=== PATIENT | female | born 1940 | race Caucasian/White ===

== ENCOUNTER → 2016-12-05 | Outpatient (CLI) | payer OTHER ==
[2016-12-05 13:11] LABS: BASO % 0.6 %; BASO ABS # 0.03 K/uL (0-0.2); COMPLETE YES; EOS % 3.8 %; HEMATOCRIT 39.5 % (37-47); IG% 0.2 %; LYMPH % 30.4 %; LYMPH ABS # 1.46 K/uL (1.2-3.4); MEAN CELL VOLUME 89.4 fL (80-100); MEAN CORPUSCULAR HEMOGLOBIN 29.6 pg (25-34); MEAN CORPUSCULAR HGB CONC 33.2 g/dl (32-36); MEAN PLATELET VOLUME 9.1 fL (7.4-10.4); MONO % 8.1 %; NEUT % 56.9 %; PLATELET COUNT 205 K/uL (130-400); RED BLOOD COUNT 4.42 M/uL (4.2-5.4)
[2016-12-05 13:47] LABS: BLOOD UREA NITROGEN 16 mg/dl (7-18); BUN/CREATININE RATIO 17.7 (10-20); CARBON DIOXIDE 27 mmol/L (21-32); CHLORIDE 109 mmol/L (98-107); CREATININE 0.91 mg/dl (0.60-1.20); GLUCOSE 88 mg/dl (70-99); SODIUM 144 mmol/L (136-145)
[2016-12-05 13:58] LABS: ALB/GLOB RATIO 1.4 (0.9-2); ALKALINE PHOSPHATASE 44 U/L (45-117); ALT/SGPT 22 U/L (12-78); AST/SGOT 16 U/L (15-37); CHOLESTEROL 162 mg/dl (0-200); HDL CHOLESTEROL 81 mg/dl; LDL CHOLESTEROL CALCULATED 62 mg/dl; TRIGLYCERIDES 96 mg/dl (0-150); VERY LOW DENSITY LIPOPROT CALC 19 mg/dl
== END | disposition home or self-care (01) ==
LOC: C.LABMFLN 08:15
PROVIDERS: ATTEND Family Medicine
DX: I35.0 Nonrheumatic aortic (valve) stenosis (principal); E78.5 Hyperlipidemia, unspecified; E03.9 Hypothyroidism, unspecified

== ENCOUNTER → 2017-03-04 | Outpatient (CLI) | payer OTHER ==
--- NOTE | 2017-03-04 16:06 | MAMMOGRAPHY REPORT ---
BILATERAL DIGITAL SCREENING MAMMOGRAM WITH CAD: 03/04/2017 CLINICAL HISTORY: Routine screening. Patient has no complaints. TECHNIQUE: Bilateral CC and MLO views were obtained. Current study was also evaluated with a Comput er Aided Detection (CAD) system. COMPARISON: Comparison is made to exams dated: 02/29/2016 mammogram, 02/10/2015 mammogram, 02/08/2014 m ammogram, 02/27/2013 ultrasound biopsy, 02/16/2013 ultrasound, and 02/16/2013 mammogram - [facility]. BREAST COMPOSITION: The tissue of both breasts is heterogeneously dense, which may obscure small ma sses. FINDINGS: The parenchymal pattern is similar to prior mammograms. There are scattered benign round calcifications and stable groupings of benign-appearing punctate microcalcifications. Minimal vasc ular calcification in the breasts. A stable ribbon shaped metallic biopsy marker in the left breast . No developing mass, architectural distortion or cluster of suspicious microcalcifications is seen . IMPRESSION: ACR BI-RADS CATEGORY 2: BENIGN There is no mammographic evidence of malignancy. A 1 year screening mammogram is recommended. The p atient will receive written notification of the results. Approximately 10% of breast cancers are not detected with mammography. A negative mammographic repor t should not delay biopsy if a clinically suggestive mass is present. Carolyn Ramos M.D. ay/:03/04/2017 15:13:47 Federal Air Marshal: Wolf Herman M, [facility] letter sent: Normal 1/2 BI-RADS Code: ACR BI-RADS Category 2: Benign
== END | disposition home or self-care (01) ==
LOC: C.MAMM 13:01
PROVIDERS: ATTEND Family Medicine
DX: Z12.31 Encounter for screening mammogram for malignant neoplasm of breast (principal)

== ENCOUNTER → 2017-12-03 | Outpatient (CLI) | payer OTHER ==
[2017-12-03 12:44] LABS: BASO % 0.6 %; BASO ABS # 0.03 K/uL (0-0.2); EOS % 5.2 %; EOS ABS # 0.25 K/uL (0-0.5); HEMATOCRIT 36.5 % (37-47); HEMOGLOBIN 11.9 g/dL (12.0-16.0); IG# 0.02 K/uL (0.00-0.02); LYMPH % 33.2 %; LYMPH ABS # 1.61 K/uL (1.2-3.4); MEAN CELL VOLUME 90.1 fL (80-100); MEAN CORPUSCULAR HEMOGLOBIN 29.4 pg (25-34); MEAN CORPUSCULAR HGB CONC 32.6 g/dl (32-36); MEAN PLATELET VOLUME 9.5 fL (7.4-10.4); MONO ABS # 0.34 K/uL (0.11-0.59); NEUT % 53.6 %; PLATELET COUNT 186 K/uL (130-400); RED CELL DISTRIBUTION WIDTH CV 13.8 % (11.5-14.5); RED CELL DISTRIBUTION WIDTH SD 45.6 fL (36.4-46.3); WHITE BLOOD COUNT 4.85 K/uL (4.8-10.8)
[2017-12-03 14:49] LABS: ALBUMIN 3.5 gm/dl (3.4-5.0); ALT/SGPT 31 U/L (12-78); AST/SGOT 18 U/L (15-37); BLOOD UREA NITROGEN 21 mg/dl (7-18); CALCIUM 8.6 mg/dl (8.5-10.1); CARBON DIOXIDE 27 mmol/L (21-32); CHOLESTEROL 165 mg/dl (0-200); CREATININE 0.82 mg/dl (0.60-1.20); GLUCOSE 88 mg/dl (70-99); SODIUM 139 mmol/L (136-145)
[2017-12-03 14:57] LABS: ALKALINE PHOSPHATASE 51 U/L (45-117); LDL CHOLESTEROL CALCULATED 82 mg/dl; TOTAL PROTEIN 6.4 gm/dl (6.4-8.2)
== END | disposition home or self-care (01) ==
LOC: C.LABMFLN 09:41
PROVIDERS: ATTEND Family Medicine
DX: I35.0 Nonrheumatic aortic (valve) stenosis (principal); E78.5 Hyperlipidemia, unspecified; E03.9 Hypothyroidism, unspecified; G47.62 Sleep related leg cramps

== ENCOUNTER → 2018-03-06 | Outpatient (CLI) | payer OTHER ==
--- NOTE | 2018-03-07 07:47 | MAMMOGRAPHY REPORT ---
BILATERAL DIGITAL SCREENING MAMMOGRAM TOMOSYNTHESIS WITH CAD: 03/06/2018 CLINICAL HISTORY: Routine screening. TECHNIQUE: Breast tomosynthesis in addition to standard 2D mammography was performed. Current study was also evaluated with a Computer Aided Detection (CAD) system. COMPARISON: Comparison is made to exams dated: 03/04/2017 mammogram, 02/29/2016 mammogram, 02/10/2015 stephania mogram, 02/08/2014 mammogram, 02/04/2012 mammogram, and 02/01/2011 mammogram - [facility] BREAST COMPOSITION: The tissue of both breasts is heterogeneously dense, which may obscure small mas ses. FINDINGS: There is possible architectural distortion seen within the right lateral breast on the CC t omosynthesis images (slice 35), possibly projecting in the superior breast on the MLO view. Recommen d spot compression tomosynthesis views and possible breast ultrasound for further evaluation. The remainder of both breasts are stable compared to prior exams, without suspicious masses, calcific ations, or areas of architectural distortion noted. Scattered bilateral benign-appearing calcificati ons are not significantly changed. A biopsy clip is again noted within the left 3:00 breast. IMPRESSION: ACR BI-RADS CATEGORY 0: INCOMPLETE EVALUATION: NEED ADDITIONAL IMAGING EVALUATION Possible right breast architectural distortion, for which additional imaging evaluation is recommende d. The patient will be called to schedule an appointment. Approximately 10% of breast cancers are not detected with mammography. A negative mammographic report should not delay biopsy if a clinically suggestive mass is present. Iza Stearns M.D. ah/:03/06/2018 14:58:05 Reinsurance Accountant: Elijah PAUL(Wolf)(M), [facility] letter sent: Addl Imaging 0 BI-RADS Code: ACR BI-RADS Category 0: Incomplete Evaluation: Need Additional Imaging Evaluation
== END | disposition home or self-care (01) ==
LOC: C.MAMM 10:15
PROVIDERS: ATTEND Family Medicine
DX: Z12.31 Encounter for screening mammogram for malignant neoplasm of breast (principal); R92.8 Other abnormal and inconclusive findings on diagnostic imaging of breast

== ENCOUNTER → 2018-03-10 | Outpatient (CLI) | payer OTHER | END | disposition home or self-care (01) | LOC: C.LABMFLN 10:09 | PROVIDERS: ATTEND Family Medicine | DX: E03.9 Hypothyroidism, unspecified (principal) ==

== ENCOUNTER → 2018-06-06 | Day surgery (SDC) | payer OTHER ==
[2018-05-28 13:44] VITALS: Ht 170.2 cm; Wt 75.0 kg
[~2018-06-06] VITALS: Ht 170.2 cm; Wt 75.0 kg
[~2018-06-06] MED LIST: ASPI81TA28 PO; ATROPINE SULFATE 0.1 MG/ML 5ML SYR IV PRN; BUPIVACAINE/EPINEPHRINE 0.5% MPF 1:200,000 30 ML VIAL ONE; CALC500C70 PO; CEFAZOLIN 2000MG IV PUSH 15 ML IV SCH; COEN400C5 PO; CYAN500T13 PO; DEXAMETHASONE SOD INJ 4 MG/ML VIAL ONE; EpHEDrine SULFATE INJ 50 MG/ML AMP IV PRN; FENTANYL CITRATE INJ 50 MCG/1 ML 2 ML VIAL ONE; HYDR-5688 PO; HYDROCODONE/ACETAMIN 5/325MG TAB PO PRN; LACTATED RINGER'S 1000ML 1,000 ML IV SCH; LEVO50TA6 PO; LIDOCAINE HCL 2% 2 ML VIAL (20MG/ML) ONE; LIDOCAINE/EPINEPHRINE 1% 20 ML VIAL ONE; MIDAZOLAM HCL 1 MG/ML 2ML VIAL ONE; MULT-506 PO; MoRPHine SULFATE 4 MG/ML 1 ML CARP\\VIAL IV PRN; ONDANSETRON INJ 2 MG/ML 2 ML VIAL IV PRN; ONDANSETRON INJ 2 MG/ML 2 ML VIAL ONE; PROPOFOL IV EMULSION 10 MG/ML 20 ML VIAL ONE; SIMV20TA2 PO
--- NOTE | 2018-06-06 07:53 | Discharge Instructions-SurgCtr ---
Discharge Instructions Date of Service Jun 06, 2018. Visit Reason for Visit: Right Breast Mass Discharge Discharge Diagnosis / Problem: breast mass Discharge Goals Goal(s): Diagnostic testing, Therapeutic intervention Activity Recommendations Activity Limitations: as noted below Lifting Limitations: gradually increase as tolerated Shower/Bathe: tomorrow Anesthesia . Post Anesthesia Instructions: If you have had General Anesthesia or IV Sedation: * Do not drive today. * Resume driving when surgeon permits. * Do not make important decisions or sign legal documents today. * Call surgeon for: 1. Temperature elevations greater than 101 degrees F. 2. Uncontrollable pain. 3. Excessive bleeding. 4. Persistent nausea and vomiting. 5. Medication intolerance (nausea, vomiting or rash). * For nausea and vomiting use only clear liquids such as: tea, soda, bouillon until nausea subsides, then gradually increase diet as tolerated. * If you have any concerns or questions, call your surgeon's office. If physician is unavailable and it is an emergency, call 911 or go to the nearest emergency room. . Instructions / Follow-Up Instructions / Follow-Up call [phone] with any concerns or questions Diet Recommendations Home Diet: resume previous diet Pending Studies Studies pending at discharge: yes List of pending studies: pathology report Medical Emergencies . Who to Call and When: Medical Emergencies: If at any time you feel your situation is an emergency, please call 911 immediately. . Non-Emergent Contact Non-Emergency issues call your: Primary Care Provider, Surgeon Call Non-Emergent contact if: temperature is above 101, wound has increased drainage, wound has increased redness, wound has increased pain . . "Provider Documentation" section prepared by Paul Vanegas. .
--- NOTE | 2018-06-06 09:57 | History & Physical Bridge Note ---
H&P Re-Evaluation Bridge Note: I have examined the patient, reviewed the History & Physical and in the interval since the performance of the History & Physical I have noted the following changes of clinical significance: No changes noted
--- NOTE | 2018-06-06 10:13 | History and Physical ---
History & Physical Date Jun 06, 2018. History of Present Illness The patient is a 77 year old female with complaints of abnormal mammogram. bx was negative however the breast radiologists are concerned there is a discordance between what they are seeing on imaging vs path report. they rec excisional bx. pt asymptomatic. Allergies Coded Allergies: No Known Allergies (Unverified , 06/06/18) Home Medications Scheduled Aspirin (Aspirin Ec), 81 MG PO HS Calcium/Vitamin D (Os-Wilmer 500 Plus D), 1 TAB PO DAILY Coenzyme Q10 (Ubidecarenone) (Coq10), 1 TAB PO QAM Cyanocobalamin (Vitamin B12 500MCG), 500 MCG PO DAILY Levothyroxine Sodium (Levothyroxine Sodium), 1 TAB PO DAILY Multivitamin (Multivitamin), 1 TAB PO DAILY Simvastatin (Zocor), 20 MG PO QPM Scheduled PRN Hydrocodone/Acetaminophen 5MG/325MG ([place] 5MG/325MG), 1 TABLET PO Q4H PRN for Pain Physical Examination Skin: warm/dry, no rash Eyes: EOMI, sclerae normal Head: atraumatic Neck: no adenopathy, trachea midline Respiratory/Chest: no respiratory distress Cardiovascular: regular rate, rhythm Abdomen / GI: non tender Extremities: normal inspection Neurologic/Psych: alert, oriented x 3 Diagnosis abnormal mammogram Plan of Treatment excisional bx of right breast with needle loc
--- NOTE | 2018-06-06 10:56 | [facility] Post Operative Brief Note ---
Immediate Operative Summary Operative Date Jun 06, 2018. Pre-Operative Diagnosis Right Breast Mass Post-Operative Diagnosis Same Procedure(s) Performed Right Breast Lumpectomy With Needle Localization Surgeon Dr. Vanegas Die Set Up Worker Surgeon(s) Ivan Alvares PA-C Estimated Blood Loss 5ml Findings Consistent with Post-Op Diagnosis Specimens A: Right Breast Lumpectomy (2Short stitches superior, 1 long stitch posterior, wire lateral) Out of Body at 1040 Sent To [facility] at 1044 Anesthesia Type General Complication(s) none
--- NOTE | 2018-06-06 11:10 | [facility] Operative Report ---
Operative Report Operative Date Jun 06, 2018. Pre-Operative Diagnosis Right Breast Mass Post-Operative Diagnosis Same Procedure(s) Performed Right Breast Lumpectomy With Needle Localization Surgeon Dr. Vanegas Arboriculture Instructor Surgeon(s) Ivan Alvares PA-C Estimated Blood Loss 5ml Specimens A: Right Breast Lumpectomy (2Short stitches superior, 1 long stitch posterior, wire lateral) Out of Body at 1040 Sent To PS[facility] at 1044 Anesthesia Type General Complication(s) none Description of Procedure Prior to coming to the operating room the patient had been to the breast bremen where she had her right breast lesion needle localized. She was then brought to the operating room placed in supine position with the right arm extended. After successful placement of the laryngeal mask airway the right breast and chest wall were sterilely prepped and draped in usual fashion. Prior to prepping I had cut the guidewire down to within a centimeter of the skin. I then made an incision next to the guidewire with a 15 blade scalpel and carried this down through the soft tissues electrocautery. I was then able to deliver the guidewire into the wound itself. I made skin flaps in 360. I then used traction countertraction and electrocautery to come around the guidewire in 360 degrees. once we were posterior to the clip and guidewire itself I was then able to come underneath the guidewire and remove it in one piece. It was marked such that the guidewire was lateral 2 short sutures were superior and one long suture was posterior. It was x-rayed and verified that we did in fact have the clip in the specimen. Next I thoroughly irrigated the wound. Any small bleeding points were controlled using electrocautery. The wound was closed in multiple layers using 3-0 Vicryl for deeper layers and 4-0 Monocryl for skin. Marcaine was injected around the incision for postoperative analgesia. Benzoin and Steri-Strips were used as dressings. My physician management assistant was present for the entire case. He helped prep the patient. He helped with retraction throughout the case for exposure. He also helped with wound closure and dressing placement at the end of the case. I attest to the content of the Intraoperative Record and any orders documented therein. Any exceptions are noted below.
[2018-06-06 11:59] VITALS: TEMP 36.3
[2018-06-06 12:39] VITALS: BP 124/77; PULSE 63; O2SAT 96
--- NOTE | 2018-06-06 12:45 | Anesthesia Progress Nt - [facility] ---
Anesthesia Post Op Note Date & Time Jun 06, 2018 at 12:45 Vital Signs Pain Intensity: 2 Vital Signs Past 12 Hours Date Time Temp Pulse Resp B/P (MAP) Pulse Ox O2 Delivery O2 Flow Rate FiO2 06/06/18 12:39 63 16 124/77 (93) 96 Room Air 06/06/18 11:59 36.3 59 16 125/79 (94) 98 Room Air 06/06/18 11:49 63 8 06/06/18 11:49 63 8 96 06/06/18 11:48 58 9 06/06/18 11:48 58 9 95 06/06/18 11:47 58 11 06/06/18 11:47 59 11 96 06/06/18 11:46 36.3 58 20 125/71 96 Room Air 06/06/18 11:46 125/71 06/06/18 11:42 63 15 92 06/06/18 11:42 64 15 06/06/18 11:41 59 10 06/06/18 11:41 59 10 95 06/06/18 11:40 120/71 06/06/18 11:36 61 11 06/06/18 11:36 61 11 98 06/06/18 11:35 107/68 06/06/18 11:31 62 9 06/06/18 11:31 62 9 100 06/06/18 11:30 109/68 06/06/18 11:26 62 10 100 06/06/18 11:26 62 10 06/06/18 11:25 109/67 06/06/18 11:23 64 11 100 06/06/18 11:23 64 11 06/06/18 11:20 110/64 06/06/18 11:18 68 13 99 06/06/18 11:18 67 13 06/06/18 11:17 67 11 06/06/18 11:17 67 11 100 06/06/18 11:15 104/60 06/06/18 11:12 68 11 100 06/06/18 11:12 69 11 06/06/18 11:11 69 11 06/06/18 11:11 70 11 100 06/06/18 11:10 86/54 06/06/18 11:08 69 12 06/06/18 11:08 69 12 100 06/06/18 11:05 105/67 06/06/18 11:04 108/63 06/06/18 11:03 36.1 74 12 108/63 96 Mask 8 06/06/18 11:03 73 95 06/06/18 11:03 73 06/06/18 07:56 37.0 64 18 121/74 (90) 97 Room Air Notes Mental Status: alert / awake / arousable, participated in evaluation Pt Amnestic to Procedure: Yes Nausea / Vomiting: adequately controlled Pain: adequately controlled Airway Patency, RR, SpO2: stable & adequate BP & HR: stable & adequate Hydration State: stable & adequate Anesthetic Complications: no major complications apparent
--- NOTE | 2018-06-06 15:28 | MAMMOGRAPHY REPORT ---
SPECIMEN RIGHT BREAST: 06/06/2018 CLINICAL HISTORY: Status post right breast surgical excision. COMPARISON: Comparison is made to exams dated: 03/27/2018 stereotactic biopsy, 03/19/2018 mammogram, ultrasound, 03/04/2017 mammogram, 02/29/2016 mammogram, and 02/10/2015 mammogram - [facility]. Findings: A radiograph was performed of the right breast surgical specimen. The localized biopsy cli p and intact needle localization wire are present within the specimen. Results were discussed with Brittany Vanegas over the telephone. IMPRESSION: SPECIMEN The imaged specimen contains the preoperatively-localized biopsy clip. Iza Stearns M.D. ah/:06/06/2018 10:56:29 Biscuit Factory Worker: Kassy Dobson, [facility]
--- NOTE | 2018-06-06 15:28 | MAMMOGRAPHY REPORT ---
NEEDLE LOCALIZATION RIGHT BREAST: 06/06/2018 CLINICAL HISTORY: Architectural distortion in the right upper outer quadrant. The patient underwent u ltrasound-guided core needle biopsy which yielded benign pathology, however, the pathology results we re felt to be discordant and surgical excision was recommended. PROCEDURE DESCRIPTION: With imaging guidance, aseptic technique, and 1% lidocaine as the local anesth etic, the focal architectural distortion in the right upper outer quadrant with an adjacent biopsy ma rker clip was localized with a 5 cm Long 2 needle. The path of approach was lateral. The archite ctural distortion and associated biopsy clip are located along the distal portion of the wire just pr oximal to the kale. The needle was removed. The patient tolerated the procedure without complication . COMPARISON: Comparison is made to exams dated: 03/27/2018 stereotactic biopsy, 03/27/2018 mammogram, mammogram, 03/19/2018 ultrasound, 03/06/2018 mammogram, and 02/29/2016 mammogram - [facility]. IMPRESSION: NEEDLE LOCALIZATION Mammographic guided needle localization of architectural distortion and associated biopsy clip in the right upper outer quadrant. Iza Stearns M.D. ah/:06/06/2018 08:33:03 Reinforcement Maker: RT Rubio(R)(M), [facility]
== END | disposition home or self-care (01) ==
LOC: X.SURG 07:34
PROVIDERS: ATTEND Surgery
DX: D05.01 Lobular carcinoma in situ of right breast (principal); N63.11 Unspecified lump in the right breast, upper outer quadrant; R92.2 Inconclusive mammogram; Z79.82 Long term (current) use of aspirin; I10 Essential (primary) hypertension; E78.5 Hyperlipidemia, unspecified; I73.9 Peripheral vascular disease, unspecified; M19.90 Unspecified osteoarthritis, unspecified site; E03.9 Hypothyroidism, unspecified

== ENCOUNTER 2023-11-12 11:54 | Inpatient (IN) ==
[2023-11-12] MEDS ORDERED: LIDOCAINE 1% LOCAL 20 ML VIAL ONE (12:11)
[2023-11-12] MEDS ORDERED: WATER, STERILE FOR INJ 10 ML VIAL ONE (12:11)
[2023-11-12] MEDS ORDERED: VANCOMYCIN HCL 1000MG/20ML VIAL ONE (12:11)
[2023-11-12] MEDS ORDERED: fentaNYL citrate PF 100 MCG/2 ML VIAL ONE (12:53)
[2023-11-12] MEDS ORDERED: MIDAZOLAM HCL 5 MG/ML 1 ML VIAL ONE (12:53)
--- NOTE | 2023-11-12 13:00 | History & Physical Bridge Note ---
Date of Service November 12, 2023 History & Physical Bridge Note I have examined the patient, reviewed the History & Physical and in the interval since the performance of the History & Physical I have noted the following changes of clinical significance: no changes noted. I reviewed the indications, procedure, risks and alternatives with the patient, and answered all questions. Patient understands and agrees to the procedure. Consent obtained. I also reviewed the risks and use of sedation, patient understands and consent obtained.
--- NOTE | 2023-11-12 13:04 | Pre Anesthesia Assessment ---
Date of Service November 12, 2023 Pre Sedation Assessment Vital Signs Temp Pulse Resp BP Pulse Ox O2 Del Method 11/12/23 12:11 36.6 C 76 20 165/73 H 99 Room Air Cardiovascular RRR, no murmur, no edema Respiratory normal respiratory effort, lungs clear to auscultation Pre-Sedation Airway Assessment Smoking Status: Never smoker Hx Sleep Apnea: No Short, Thick Neck: No Thyromental Distance: > or= 3.5 Finger Breadths Oral Cavity: + WNL Mallampati Class: I ASA: ASA1 NPO Status Date of Last Intake of Fluids: 11/11/23 Time of Last Intake of Fluids: 20:00 Date of Last Intake of Solid Food: 11/11/23 Time of Last Intake of Solid Foods: 20:00 Procedure Planning Contraindications for Sedation: none Current Medications Reviewed: Yes Notes The planned sedation has been discussed with the patient. Informed Consent was obtained. I have identified the patient, determined the appropriateness of sedation and have assessed the patient immediately prior to the procedure. All medicine(s) and interventions are by my order.
--- NOTE | 2023-11-12 13:06 | History & Physical Report ---
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 We will have to implant a standard dual-chamber pacemaker to be confident to maintain AV synchrony. History of Present Illness Chief Complaint: Pacemaker syndrome Primary Care Provider: Duy Juarez MD This is an 82-year-old woman with a history of hypothyroidism, carotid artery disease, breast cancer hyperlipidemia and severe aortic stenosis for which she required TAVR December 20, 2022. Preoperative cardiac catheterization showed no [place] coronary artery disease. The TAVR procedure was complicated by AV block and she had a Micra AV pacemaker implanted on December 21, 2022. There is an indication that she may have had sinus node dysfunction as well. She was seen here in follow-up on February 06, 2022 and she was having symptoms of exercise- induced lightheadedness as well as fatigue and tiredness. Pacemaker evaluation at that time indicated poor atrial tracking, the device was reprogrammed. She did have an echocardiogram done at [facility] on February 04, 2023 and normal left ventricular size and systolic function with no regional wall motion abnormalities is noted. The ejection fraction is estimated at 60 to 65% with moderate left ventricular hypertrophy. The bioprosthetic aortic valve appeared to be working well. Initially after valve replacement and pacemaker implantation she has been having a lot of difficulty with intermittent lightheadedness, this was mostly with exertion or sometimes with standing up and occurs frequently throughout the day. She also noted that she could not walk up hills without getting extremely short of breath and this evidently is also worse than before the valve replacement. On evaluation of her pacemaker it was not appropriately tracking atrial activity so adjustments were made s to those settings March 13, 2023. These changes were quite helpful initially and for short time it significantly improved her exercise ability however she has developed recurrence of her prior symptoms. She describes dyspnea on exertion walking up stairs, chest heaviness with exertion as well as intermittent dizziness. She cannot walk up hills that she could before and her has noticed that as well. She does not have orthopnea, PND or peripheral edema. I did have her do a treadmill stress test in the office on September 11, 2023 as well as an echocardiogram to evaluate left ventricular function. An echocardiogram done September 11, 2023 shows normal left ventricular systolic function with mild concentric left ventricular hypertrophy and ejection fraction of 60 to 65%. The prosthetic aortic valve is functioning well with a normal gradient. The stress test on September 11, 2023 was quite abnormal in that atrial tracking with exercise was poor therefore her heart rate response was poor. We did make attempts to adjust her pacemaker to improve tracking but we were unsuccessful in allowing it to consistently track. This device is also limited in its tracking rate to 115 bpm, however she never reached that rate. Her symptoms based on testing in the office today therefore appear to be related to poor heart rate due to poor tracking performance not intrinsic cardiac problems, despite the wide paced complex. We had made some adjustments to her pacemaker in hopes that she would feel better. She returns now not feeling much different. She still has trouble doing what she would consider normal activities (even climbing one flight of steps) and her notes that she cannot keep up with him even on a slow walk. She is not satisfied with how this impacts her lifestyle. Otherwise she is doing well and is tolerating her medications well. Allergies Allergy/AdvReac Type Severity Reaction Status Date / Time amoxicillin AdvReac Unknown Nausea Verified 11/12/23 12:27 Home Medications Medication Instructions Recorded Confirmed Type calcium carbonate 600 mg-vitamin 1 tab PO QAM 06/23/19 11/12/23 History D3 10 mcg (400 unit) tablet cyanocobalamin (vitamin B-12) 500 500 mcg PO QAM 06/23/19 11/12/23 History mcg tablet Lactobacillus rhamnosus GG 15 1 cap PO HS 07/29/19 11/12/23 History billion cell sprinkle capsule aspirin 81 mg tablet,delayed 81 mg PO QPM 07/29/19 11/12/23 History release multivitamin 1 tab PO QAM 08/31/20 11/12/23 History coenzyme Q10 200 mg capsule 200 mg PO DAILY 10/16/22 11/12/23 History pantoprazole 20 mg tablet,delayed 20 mg PO DAILY #90 tabs 12/29/22 11/12/23 Rx release pravastatin 20 mg tablet 20 mg PO HS #90 tabs 05/06/23 11/12/23 Rx levothyroxine 75 mcg tablet 75 mcg PO QAM #90 tabs 05/27/23 11/12/23 Rx (Synthroid) azithromycin 250 mg tablet 500 mg (2 x 250 mg) PO ONCE #2 tabs 05/31/23 11/12/23 Rx Past Med/Surg History Medical History (Updated 10/08/23 @ 16:08 by Osmar Elaine MD) Osteoporosis Hx of cardiac pacemaker medtronic Scoliosis Hearing deficit Exertional shortness of breath Allergic rhinitis Aortic stenosis Arteriosclerosis of both carotid arteries Breast cancer LVH (left ventricular hypertrophy) Memory loss Osteopenia Osteoarthritis Diverticular disease Hypothyroidism Hyperlipidemia Surgical History Hx of aortic valve replacement History of left heart catheterization 11/06/22 PSH S/P epidural steroid injection (~04/07/20) History of partial mastectomy of right breast History of inguinal hernia repair Hx laparoscopic cholecystectomy (07/30/19) Laparoscopic Cholecystectomy Dr. Vanegas 07/30/19 Hx of umbilical hernia repair Hx of breast biopsy Hx of tonsillectomy Hx of appendectomy Hx of colonoscopy 10/14/2020 History of lumpectomy of right breast May 2018 History of bilateral tubal ligation History of tooth extraction Family History Mother Coronary heart disease Hypertension Father Coronary heart disease Lung cancer Hypertension Sister Cancer Other No family history of adverse response to anesthesia No significant family history Social History Smoking Status: Never smoker Second Hand Exposure: Yes (parents smoked); Do You Dip or Chew Tobacco: No; Hx Alcohol Use: Yes Alcohol type: wine Hx Substance Use: No Preferred Language: Nepali Communication Ability: Effective Communication Ability Comment: BILAT AIDES-PLEASE ADDRESS PT IN FRONT FOR HER TO SEE FACE Visual Impairment: No Limitations Shade Classifier Required: No Beliefs That Will Affect Care: None Current Living Situation: Spouse Current Living Situation Comment: [employer] Other Information That Helps Us Care for You: No Feels Safe at Home: Yes Safety Concerns: Feels Safe At This Time Seatbelt Use: always Assistive Devices: Glasses Physical Exam Physical Exam: Constitutional: Alert, cooperative and in no distress. HEENT: Unremarkable Neck: No jugular venous distention, carotid pulses are normal and equal bilaterally without bruits. Pulmonary: Clear to auscultation bilaterally. Cardiac: Regular rhythm with a grade 2/6 crescendo decrescendo murmur at the base, no gallop or rub. Good prosthetic valve sounds. Abdomen: Soft, nontender with normal bowel sounds. Extremities: No edema. Distal pulses intact. Neurologic: No focal findings. Gait is steady. Skin: No rash, ecchymoses or petechiae. Results & Data Results & Data Vital Signs (Past 12 Hours) Vital Signs Temp Pulse Resp BP Pulse Ox O2 Del Method 11/12/23 12:11 36.6 C 76 20 165/73 H 99 Room Air Laboratory Results Intake and Output 11/11/23 11/12/23 11/12/23 22:59 06:59 14:59 Other: Weight 72.3 kg Weight Measurement Method Standing Scale Patient Weight 11/13/23 06:59 Weight 72.3 kg PG Care Time/CCT Total # of Minutes Spent Total Time Spent with Patient: Total time spent is greater than 50% in coordination of care (as documented) at patient's floor/unit and/or counseling patient: Coding Level of Care Code None Diagnoses Pacemaker syndrome I97.190
--- NOTE | 2023-11-12 15:26 | Electrophysiology Report ---
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 The left prepectoral region was anesthetized with 1% lidocaine local anesthetic and left axillary venipuncture was performed by percutaneous technique and a guidewire placed through the left subclavian vein into the superior vena cava. The area was further infiltrated with 1% lidocaine local anesthetic and a 5 cm incision was made parallel to the left clavicle and 2 cm below it and carried down to the anterior pectoralis fascia. A pacemaker pocket was formed by blunt dissection anterior to the pectoralis fascia and a vancomycin soaked sponge was placed in the pocket. A 9 Ma[place] Medtronic lead introducer was placed over the guidewire into the left subclavian vein, the dilator and guidewire were removed and a bipolar active fixation steroid tipped atrial lead was advanced through the introducer into the superior vena cava. A guidewire was placed through the introducer and the introducer was stripped from the lead and guidewire. A 7 Ma[place] Medtronic lead introducer was placed over the guidewire into the left subclavian vein, the dilator and guidewire were removed and a left bundle branch sheath was advanced through the introducer over the guidewire into the right ventricle. Multiple attempts were made to place a left bundle branch employment coordinator through the sheath into the septum, taking care to avoid the Micra pacemaker, however adequate fixation and adequate thresholds could not be obtained by this manner. Therefore this system was removed and a bipolar active fixation steroid tipped ventricular lead was advanced through the introducer into the superior vena cava and the introducer was stripped from the lead and guidewire. Using a curved stylette the ventricular lead was advanced through the right ventricular outflow tract into the pulmonary artery and then using a straight stylette was positioned in the right ventricular apex. The screw was extended fixing the lead in position. Pacing and sensing thresholds were evaluated in bipolar configuration and are recorded on the implant data sheet. Using a curved stylette the atrial lead was positioned in the region of the atrial appendage and the screw extended fixing the lead in position. Pacing and sensing thresholds were evaluated in bipolar configuration and are recorded on the implant data sheet. Once the leads were in position they were attached to the anterior pectoralis fascia using 2 sutures of 2-0 silk around each lead collar. The vancomycin soaked sponge was removed from the pocket, hemostasis was obtained, the pacemaker was attached to the leads and placed in the pocket with the leads coiled beneath it. The incision was closed with a running double subcutaneous closure of 3-0 Vicryl absorbable suture, followed by running subcuticular skin closure of 4-0 Vicryl absorbable suture. Bacitracin ointment was placed on the incision and a dressing applied. The Micra pacemaker was reprogrammed to a backup VVI pacing mode with pacing performed by the newly implanted dual-chamber pacemaker. [facility] [place] codes Indication for Procedure (1) Pacemaker syndrome: Pacing Procedure 1: Pacin Insert/Replace Pacer A & V PG Moderate Sedation Codes Moderate Sedation Codes Procedure 1: Sedation/Anesthesia: 34172 Mod Sedation by the same physician;Init15 Min Child Age 5 & Up Procedure 2: Sedation/Anesthesia: 43229 Mod Sedation by the same physician; Ea [id number] Minutes
[2023-11-12] MEDS ORDERED: KETOROLAC TROMETHAMINE 10 MG TABLET PO PRN (15:37)
--- NOTE | 2023-11-12 16:26 | Post Anesthesia Assessment ---
Date of Service November 12, 2023 Post Sedation Assessment Vital Signs Temp Pulse Resp BP Pulse Ox O2 Del Method 11/12/23 16:00 60 14 137/82 97 Room Air 11/12/23 15:45 60 14 163/92 H 97 Room Air 11/12/23 15:30 60 14 163/92 H 97 Room Air 11/12/23 12:11 36.6 C 76 20 165/73 H 99 Room Air Recovery Score Activity: Moves 4 extremities Respiration: Deep Breath/Cough Circulation: +/-20% PreAnes Value Consciousness: Fully Awake Post Anesthesia Score: 8 Discharge Sedation Level of Care: Fast Track Phase II Post Sedation Plan On clinical assessment, the patient appears to have tolerated the sedation without complications. Patient is recovering as anticipated. Patient will continue to be monitored by nursing and may be discharged when sedation discharge criteria are met per below protocol. Upon Completions of procedure up to 15 minutes continue every 5 minute vital signs and the P.A.R. score; then discharge to a Phase I or Fast Track to Phase II per the following guidelines: * Discharge Patient to appropriate Phase II area if PAR is 8 or greater or return to pre- procedure baseline. The post - procedure orders will be as directed. * If PAR score is less than 8 or not return to pre-procedure baseline then patient will follow Phase I monitoring till PAR is reached for Phase II. The Phase I may be done in procedure room or may call to secure a Phase I area. * If naloxone or flumazenil are used for reversal, hold in Phase I for continued monitoring from when last reversal dose was given for a minimum of 60 minutes or longer pending the nurse and/or physician discretion of patient condition before discharge to Phase II. Please call the Sedation Physician to re-evaluate and complete post-note for discharge to Phase II area. Do NOT discharge from procedure sedation or Phase 1 until post- sedation evaluation note is complete by procedure /sedation MD Sedation Discharge Instructions to be given to the patient at discharge to home.
--- NOTE | 2023-11-12 16:46 | XCELERA ---
[id number]
[2023-11-12] MEDS: ACETAMINOPHEN 325 MG TAB PO PRN (20:13)
[2023-11-12] MEDS ORDERED: PRAVASTATIN SOD 20 MG TAB PO SCH (21:00)
[2023-11-12] MEDS ORDERED: ADVANCED PROBIOTIC 1250 MG CAPSULE PO SCH (21:00)
[2023-11-12] MEDS ORDERED: ASPIRIN 81 MG ECTAB PO SCH (21:00)
[2023-11-13] MEDS ORDERED: LEVOTHYROXINE SODIUM 75 MCG TABLET PO SCH (06:30)
[2023-11-13] MEDS: ACETAMINOPHEN 325 MG TAB PO PRN (06:31)
--- NOTE | 2023-11-13 07:15 | XRay Report ---
XR chest 2V PA/lateral HISTORY: 82 years-old Female EXACT TIME ORDERED Evaluate for pneumothorax and l left subclavian pace r placement COMPARISON: None TECHNIQUE: PA and lateral views of the chest FINDINGS: Cardiac silhouette is upper limits of normal in size. Status post placement of a dual-lead left subcl celeste pacer. Aortic valvular and a graft with the electronic ovoid device projection of the left hear t border. No pneumothorax, pleural effusion or airspace consolidation. Mild biapical pleural-parenchy mal scarring. Sigmoidal thoracolumbar scoliosis. The bones appear grossly intact. IMPRESSION: Status post placement of a dual lead left subclavian pacer. No postprocedural pneumothora x identified. ACT 112: Negative or not required by law. The above report was generated using voice recognition software. It may contain grammatical, syntax o r spelling errors. Electronically signed by: Agustin Ann M.D. 11/13/2023 7:14 AM
[2023-11-13] MEDS ORDERED: CALCIUM 600MG + VIT D 400 IU TAB PO SCH (09:00)
[2023-11-13] MEDS ORDERED: PANTOprazole 40 MG TAB PO SCH (09:00)
[2023-11-13] MEDS ORDERED: CYANOCOBALAMIN (B-12) 500 MCG TABLET PO SCH (09:00)
[2023-11-13] MEDS ORDERED: MULTIVITAMIN TAB PO SCH (09:00)
[2023-11-13] MEDS ORDERED: NON-FORMULARY MEDICATION (Coenzyme Q10 200 mg capsule) PO SCH (09:00)
--- NOTE | 2023-11-13 09:16 | Discharge Summary ---
Date of Service November 13, 2023 Admission HPI Per Admitting Provider This is an 82-year-old woman with a history of hypothyroidism, carotid artery disease, breast cancer hyperlipidemia and severe aortic stenosis for which she required TAVR December 20, 2022. Preoperative cardiac catheterization showed no [place] coronary artery disease. The TAVR procedure was complicated by AV block and she had a Micra AV pacemaker implanted on December 21, 2022. There is an indication that she may have had sinus node dysfunction as well. She was seen here in follow-up on February 06, 2022 and she was having symptoms of exercise- induced lightheadedness as well as fatigue and tiredness. Pacemaker evaluation at that time indicated poor atrial tracking, the device was reprogrammed. She did have an echocardiogram done at [facility] on February 04, 2023 and normal left ventricular size and systolic function with no regional wall motion abnormalities is noted. The ejection fraction is estimated at 60 to 65% with moderate left ventricular hypertrophy. The bioprosthetic aortic valve appeared to be working well. Initially after valve replacement and pacemaker implantation she has been having a lot of difficulty with intermittent lightheadedness, this was mostly with exertion or sometimes with standing up and occurs frequently throughout the day. She also noted that she could not walk up hills without getting extremely short of breath and this evidently is also worse than before the valve replacement. On evaluation of her pacemaker it was not appropriately tracking atrial activity so adjustments were made s to those settings March 13, 2023. These changes were quite helpful initially and for short time it significantly improved her exercise ability however she has developed recurrence of her prior symptoms. She describes dyspnea on exertion walking up stairs, chest heaviness with exertion as well as intermittent dizziness. She cannot walk up hills that she could before and her has noticed that as well. She does not have orthopnea, PND or peripheral edema. I did have her do a treadmill stress test in the office on September 11, 2023 as well as an echocardiogram to evaluate left ventricular function. An echocardiogram done September 11, 2023 shows normal left ventricular systolic function with mild concentric left ventricular hypertrophy and ejection fraction of 60 to 65%. The prosthetic aortic valve is functioning well with a normal gradient. The stress test on September 11, 2023 was quite abnormal in that atrial tracking with exercise was poor therefore her heart rate response was poor. We did make attempts to adjust her pacemaker to improve tracking but we were unsuccessful in allowing it to consistently track. This device is also limited in its tracking rate to 115 bpm, however she never reached that rate. Her symptoms based on testing in the office today therefore appear to be related to poor heart rate due to poor tracking performance not intrinsic cardiac problems, despite the wide paced complex. We had made some adjustments to her pacemaker in hopes that she would feel better. She returns now not feeling much different. She still has trouble doing what she would consider normal activities (even climbing one flight of steps) and her notes that she cannot keep up with him even on a slow walk. She is not satisfied with how this impacts her lifestyle. Otherwise she is doing well and is tolerating her medications well. Admission Exam (Per Admitting) Constitutional Constitutional: Alert, cooperative and in no distress. HEENT: Unremarkable Neck: No jugular venous distention, carotid pulses are normal and equal bilaterally without bruits. Pulmonary: Clear to auscultation bilaterally. Cardiac: Regular rhythm with a grade 2/6 crescendo decrescendo murmur at the base, no gallop or rub. Good prosthetic valve sounds. Abdomen: Soft, nontender with normal bowel sounds. Extremities: No edema. Distal pulses intact. Neurologic: No focal findings. Gait is steady. Skin: No rash, ecchymoses or petechiae. Discharge Data Procedures Performed Operation Date: 11/12/23 13:00 Actual Procedures p Pacer with A/V Leads (Dual) - Osmar Elaine MD Hospital Course (1) Pacemaker syndrome: Plan She is doing well postop day #1 dual-chamber pacemaker implantation. With chest x-ray looks good, the site looks good and her device is working normally on telemetry. The Micra intracardiac pacemaker remains in place programmed to backup mode of 40 bpm in VVI mode as a safety measure. She is stable for discharge. Coding Level of Care Code None Diagnoses Pacemaker syndrome I97.190
--- NOTE | 2023-11-13 09:16 | Cardiology Progress Note ---
Date of Service November 13, 2023 Assessment & Plan (1) Pacemaker syndrome: Plan She is doing well postop day #1 dual-chamber pacemaker implantation. With chest x-ray looks good, the site looks good and her device is working normally on telemetry. The Micra intracardiac pacemaker remains in place programmed to backup mode of 40 bpm in VVI mode as a safety measure. She is stable for discharge. Admission and Anticipated Discharge Date Admission Date: November 12, 2023 Subjective She is feeling well today, no further chest discomfort, no significant incisional discomfort, she does have some back discomfort. No other cardiovascular symptoms. Physical Exam Physical Exam: The pacemaker site is clean and dry with no significant swelling or ecchymosis. Dressing changed. Cardiac rhythm is regular with no rub Lungs are clear Results & Data Vital Signs (Past 12 Hours) Vital Signs Temp Pulse Resp BP BP Pulse Ox O2 Del Method 11/13/23 07:52 36.8 C 75 18 132/72 96 Room Air 11/13/23 03:36 36.5 C 65 19 115/72 95 Room Air 11/12/23 23:08 37.0 C 72 19 115/68 92 Room Air Laboratory Results Intake and Output 11/12/23 11/13/23 11/13/23 22:59 06:59 14:59 Other: Weight 74.6 kg Diagnostic Findings Postop ECG: Atrial sensing and ventricular pacing throughout Telemetry: Normal dual-chamber function with atrial sensing and ventricular pacing, some PVCs PG Care Time/CCT Total # of Minutes Spent Total Time Spent with Patient: Total time spent is greater than 50% in coordination of care (as documented) at patient's floor/unit and/or counseling patient: Coding Level of Care Code 53109 Post Operative Follow-Up Diagnoses Pacemaker syndrome I97.190
--- NOTE | 2023-11-15 18:07 | Electrocardiogram Report ---
Test Reason : Blood Pressure : / mmHG Vent. Rate : 064 BPM Atrial Rate : 064 BPM P-R Int : 222 ms QRS Dur : 134 ms QT Int : 486 ms P-R-T Axes : 056 -71 097 degrees QTc Int : 501 ms Atrial-sensed ventricular-paced rhythm with prolonged AV conduction Abnormal ECG When compared with ECG of 11-SEP-2023 09:42, Vent. rate has decreased BY 7 BPM Confirmed by Denny Kramer ([id number]) on 11/15/2023 6:07:26 PM Referred By: Osmar Elaine Confirmed By:Denny Kramer
== END 2023-11-13 11:54 | disposition home or self-care (01) | DRG 244 ==
LOC: EP 11:54 → OBSVTOIN 13:44 → INTOOBSV 13:44 → 2E 13:44